=== PATIENT | female | born 1975 | race Caucasian/White ===

== ENCOUNTER 2018-12-25 21:42 | Emergency (ER) | payer MEDICAID ==
[~2018-12-25] VITALS: Ht 162.6 cm; Wt 54.0 kg
[2018-12-25 22:01] VITALS: Ht 162.6 cm; Wt 54.0 kg
[2018-12-26 00:20] VITALS: BP 112/87
== END 2018-12-26 00:20 | disposition home or self-care (01) ==
LOC: ED 21:42
DX: F41.1 Generalized anxiety disorder (principal)